=== PATIENT | male | born 1980 | race Caucasian/White ===

== ENCOUNTER 2018-01-03 19:15 | Emergency (ER) | payer BC ==
[~2018-01-03] VITALS: Ht 177.8 cm; Wt 86.5 kg
[2018-01-03 19:32] VITALS: TEMP 36.7; Ht 177.8 cm; Wt 86.5 kg
--- NOTE | 2018-01-03 20:18 | EMERGENCY ROOM VISIT NOTE ---
ED Visit Note First contact with patient: 19:34 CHIEF COMPLAINT: Right lower leg injury 1 hour ago HISTORY OF PRESENT ILLNESS: Patient is an otherwise healthy 37-year-old male who presents the emergency department accompanied by his family for evaluation of right lower leg pain after an injury while playing softball that occurred less than an hour ago. Patient relates that he was pushing off to start to run , when he felt a pop in his right lower leg near his Achilles tendon. He notes that it was not significantly painful, but his ankle felt weak and he was not able to continue to play. He notes a minor discomfort that he rates a 3/10 in the back of his Achilles tendon near his ankle. He is able to bear weight but it is uncomfortable. He did not take any medications, nor perform any interventions for his symptoms. REVIEW OF SYSTEMS: Review of systems as per HPI. All other systems reviewed were negative. At least 6 systems reviewed. PMH: Electronic medical records are reviewed and summarized as above/below. See Problem List. SOCIAL HISTORY: Patient lives at home with his family. Non-smoker. PHYSICAL EXAM: Vital Signs: Reviewed Nurse's notes. MENTAL STATUS: Alert, oriented, and cooperative. MUSCULOSKELETAL: Examination of the right lower leg does not note any significant deformity. With the patient lying prone, the right calf was palpated and there was no pain or defect in the muscle belly of the gastrocnemius. The Achilles tendon insertion on the calcaneus was also nontender, patient has some swelling and fullness of the Achilles proximal to the calcaneal insertion, with a palpable defect. This area is mildly tender to palpation. Julian test is positive. Patient has weak plantar flexion, full dorsiflexion. Skin is otherwise intact. The right lower extremity is neurovascularly intact. EMERGENCY DEPARTMENT COURSE: The patient was seen and assessed as above. X- rays of the right ankle were obtained, no bony abnormality noted. The patient was placed in a short leg posterior Ortho-Glass splint. He was instructed on a nonweightbearing gait using crutches. He was advised that he will need to be evaluated by orthopedics for what I suspect will likely be surgical intervention for a suspected Achilles tendon rupture. Medication reconciliation: I attest that I have personally reviewed the patient' s current medication list. Blood pressure screening : Patient was found to have normal blood pressure on screening and does not require follow-up. Differential diagnosis include foot verses ankle sprain/fracture, contusion, dislocation tendon rupture, among others, . RIGHT ANKLE 3 VIEWS HISTORY: RIGHT, ACHILLES TENDON RUPTURE COMPARISON: None. FINDINGS: There is no fracture or dislocation. Thickening within the mid Achilles tendon with soft tissue swelling within the pre-Achilles fat pad. This favors a partial tear. No radiopaque foreign bodies. IMPRESSION: 1. No fracture or dislocation within the right ankle. 2. Thickening and surrounding fat stranding at the mid Achilles tendon suggestive of a partial tear. Current/Historical Medications No Active Prescriptions or Reported Meds Allergies Coded Allergies: No Known Allergies (Unverified , 01/03/18) Vital Signs Date Time Temp Pulse Resp B/P (MAP) Pulse Ox O2 Delivery O2 Flow Rate FiO2 01/03/18 20:52 98 18 146/96 97 Room Air 01/03/18 19:32 36.7 93 18 120/79 98 Departure Information Impression Primary Impression: Rupture of right Achilles tendon Prescriptions No Active Prescriptions or Reported Meds Referrals Adrian Nicolas M.D. Patient Instructions [facility] Additional Instructions Ibuprofen(Motrin, Advil) may be used for fever or pain. Use 600mg every six hours as needed. Take with food. Avoid using more than 2400mg in a 24 hour period. Do not use 2400mg per day for more than three consecutive days without physician direction. Prolonged inappropriate use can lead to stomach upset or ulcers. This medication can be taken if you need to drive, work, or perform activities which may be dangerous when taking narcotic pain medication. (AND/OR) Acetaminophen(Tylenol) may be used for fever or pain. Use 1000mg every six hours as needed. Avoid using more than 3000mg in a 24 hour period. This medication can be taken if you need to drive, work, or perform activities which may be dangerous when taking narcotic pain medication. Ice compresses for 20 minutes at a time four times daily for 2-3 days. Use the crutches as instructed. Rest and elevate your injury. Do not get the splint wet. If your splint feels excessively tight, you have worsening pain, develop numbness or tingling, or your digits appear blue, loosen the morgan wrap. Then reapply the morgan wrap gently without removing the splint. If your symptoms are not quickly relieved return to the ER for re- evaluation. Continue current medications. Return to the ER immediately for any numbness, tingling, severe pain, extreme swelling in the extremity or as needed. Call [facility] tomorrow to arrange follow up for your injury. Tell them you were seen in the emergency department today and diagnosed with an Achilles tendon rupture.
--- NOTE | 2018-01-03 20:30 | DIAGNOSTIC IMAGING REPORT ---
RIGHT ANKLE 3 VIEWS HISTORY: RIGHT, ACHILLES TENDON RUPTURE COMPARISON: None. FINDINGS: There is no fracture or dislocation. Thickening within the mid Achilles tendon with soft tissue swelling within the pre-Achilles fat pad. This favors a partial tear. No radiopaque foreign bodies. IMPRESSION: 1. No fracture or dislocation within the right ankle. 2. Thickening and surrounding fat stranding at the mid Achilles tendon suggestive of a partial tear. Electronically signed by: Amaury Lee M.D. 01/03/2018 8:29 PM Dictated Date/Time: 01/03/2018 8:27 PM
[2018-01-03 20:52] VITALS: BP 146/96; PULSE 98; O2SAT 97
== END 2018-01-03 21:03 | disposition home or self-care (01) ==
LOC: C.EDB 19:17 → C.EDD 21:03
DX: S86.011A Strain of right Achilles tendon, initial encounter (principal); X50.9XXA Other and unspecified overexertion or strenuous movements or postures, initial encounter; Y93.64 Activity, baseball; Y99.8 Other external cause status